=== PATIENT | male | born 1955 | race Caucasian/White ===

== ENCOUNTER 2016-10-15 17:56 | Emergency (ER) | payer MEDICARE, OTHER ==
[~2016-10-15] VITALS: Ht 190.5 cm; Wt 98.6 kg
[~2016-10-15 17:56] MED LIST: AMLO5TAB96 PO; CORE3.12 PO; FOLI1TAB PO; IBUP-232 PO; LORTA5 PO; PRAV10 PO; THIA100T PO
[2016-10-15 17:57] VITALS: BP 134/74; PULSE 84; RESP 15; TEMP 97.8; O2SAT 99
[2016-10-15] MEDS ORDERED: VANCOMYCIN INJ 1,000 MG in SODIUM CHLOR 0.9% 250 ML INJ 250 ML IV ONE (18:30)
--- NOTE | 2016-10-15 18:36 | PD ---
HPI Chief Complaint: Skin Problem Time Seen by Provider: 18:22 Travel History International Travel<30 days: No Contact w/Intl Traveler<30days: No Traveled to known affect area: No History of Present Illness HPI Patient is a 61-year-old male who presents to emergency room with complaints of worsening cellulitis. Patient reports that a few days ago, he injured his left lower extremity on a barstool, reports that he ended up developing a cellulitis and of redness to his left lower extremity. Patient reports that he follow-up with primary care doctor who started him on Bactrim 3 days ago. Patient reports that he is concerned as he has been compliant with his medications but noticed increased redness up his left leg. Patient reports no fevers or chills , reports that he did thinks that his antibiotics are not working at this time. Patient reports that his tetanus is up-to-date. PFSH Past Medical History Arthritis: Yes Asthma: No Blood Disorders: No Heart Rhythm Problems: No Cancer: No Cardiovascular Problems: Yes ([place] in 2012) High Cholesterol: No Chemotherapy: No Chest Pain: Yes Congestive Heart Failure: No Diabetes: No Diminished Hearing: No Deep Vein Thrombosis: Yes (LLE 2007) Endocrine: No Gastrointestinal Disorders: No (LT SIDE HERNIA) Glaucoma: No Genitourinary: No Headaches: Yes Hepatitis: No Hiatal Hernia: No Hypertension: Yes Immune Disorder: No Implanted Vascular Access Dvce: No Medical other: Yes (arthritis,back problems) Musculoskeletal: Yes Neurologic: Yes Psychiatric: No Reproductive: No Respiratory: No Myocardial Infarction: Yes Radiation Therapy: No Thyroid Disease: No PNEUMOCCOCAL Vaccine (Year): 2 Past Surgical History Abdominal Surgery: No AICD: No Arteriovenous Shunt: No Body Medical Devices: right knee Cardiac Surgery: No Ear Surgery: No Endocrine Surgery: No Eye Surgery: No Genitourinary Surgery: No Insulin Pump: No Joint Replacement: Yes (RIGHT KNEE REPLACEMENT in 2012) Neurologic Surgery: Yes (PARTIAL LAMINECTOMY LUMBAR BACK) Oral Surgery: No Pacemaker: No Thoracic Surgery: No Other Surgery: Yes (RT THUMB LIGAMENT REPAIR, RT BICEP TENDON REPAIR, HARRY CARPAL TUNNEL REPAIR) Social History Alcohol Use: Yes (1-2 times per week) Tobacco Use: No Substance Use: No Allergies-Medications (Allergen,Severity, Reaction): Coded Allergies: Lisinopril (Verified Allergy, Unknown, Wheezing, 02/21/16) *MDRO Multi-Drug Resistant Organism (Verified Adverse Reaction, Unknown, ) MRSA (back wound) - 09/20/10 MRSA PCR (nares) negative - 12/24/15 & 12/27/15. Cleared per Infection Control Reported Meds & Prescriptions Reported Meds & Active Scripts Active Reported Thiamine (Thiamine HCl) 50 Mg Cap 50 Mg PO DAILY Pravastatin 10 Mg Tab 10 Mg PO DAILY Coreg (Carvedilol) 12.5 Mg Tab 12.5 Mg PO DAILY Norvasc (Amlodipine Besylate) 10 Mg Tab 10 Mg PO DAILY Review of Systems General / Constitutional: No: Fever, Chills Eyes: No: Visual changes HENT: No: Headaches Cardiovascular: No: Chest Pain or Discomfort Respiratory: No: Shortness of Breath Gastrointestinal: No: Abdominal Pain Genitourinary: No: Dysuria Musculoskeletal: No: Pain Skin: Positive Other (cellulitis), No Rash Neurologic: No: Weakness Psychiatric: No: Depression Endocrine: No: Polydipsia Hematologic/Lymphatic: No: Easy Bruising Physical Exam Narrative GENERAL: No acute distress, nontoxic SKIN: Warm and dry. Patient with increased warmth from his left ankle below his left knee, patient with circumferential cellulitis HEAD: Atraumatic. Normocephalic. EYES: . No injection or drainage. ENT: No nasal bleeding or discharge. Mucous membranes pink and moist. NECK: Trachea midline. No JVD. CARDIOVASCULAR: Regular rate and rhythm. No murmur appreciated. RESPIRATORY: No accessory muscle use. Clear to auscultation. Breath sounds equal bilaterally. GASTROINTESTINAL: Abdomen soft, non-tender, nondistended. Hepatic and splenic margins not palpable. MUSCULOSKELETAL: No obvious deformities. No clubbing. No cyanosis. No edema. NEUROLOGICAL: Awake and alert. No obvious cranial nerve deficits. Motor grossly within normal limits. Normal speech. PSYCHIATRIC: Appropriate mood and affect; insight and judgment normal. Data Data Last Documented VS Vital Signs Date Time Temp Pulse Resp B/P Pulse Ox O2 Delivery O2 Flow Rate FiO2 10/15/16 18:19 75 18 10/15/16 17:57 97.8 134/74 99 Orders Complete Blood Count With Diff (10/15/16 18:27) Comprehensive Metabolic Panel (10/15/16 18:27) Blood Culture (10/15/16 18:27) Vancomycin Inj (Vancomycin Inj) (10/15/16 18:30) Labs Laboratory Tests Test 10/15/16 18:33 White Blood Count 6.5 TH/MM3 Red Blood Count 4.57 MIL/MM3 Hemoglobin 14.3 GM/DL Hematocrit 40.0 % Mean Corpuscular Volume 87.6 FL Mean Corpuscular Hemoglobin 31.3 PG Mean Corpuscular Hemoglobin 35.7 % Concent Red Cell Distribution Width 13.5 % Platelet Count 250 TH/MM3 Mean Platelet Volume 7.6 FL Neutrophils (%) (Auto) 62.1 % Lymphocytes (%) (Auto) 22.9 % Monocytes (%) (Auto) 10.0 % Eosinophils (%) (Auto) 3.9 % Basophils (%) (Auto) 1.1 % Neutrophils # (Auto) 4.0 TH/MM3 Lymphocytes # (Auto) 1.5 TH/MM3 Monocytes # (Auto) 0.6 TH/MM3 Eosinophils # (Auto) 0.3 TH/MM3 Basophils # (Auto) 0.1 TH/MM3 CBC Comment DIFF FINAL Differential Comment Sodium Level 141 MEQ/L Potassium Level 3.3 MEQ/L Chloride Level 101 MEQ/L Carbon Dioxide Level 28.2 MEQ/L Anion Gap 12 MEQ/L Blood Urea Nitrogen 13 MG/DL Creatinine 1.22 MG/DL Estimat Glomerular Filtration 60 ML/MIN Rate Random Glucose 86 MG/DL Calcium Level 9.2 MG/DL Total Bilirubin 0.4 MG/DL Aspartate Amino Transf 28 U/L (AST/SGOT) Alanine Aminotransferase 28 U/L (ALT/SGPT) Alkaline Phosphatase 100 U/L Total Protein 7.5 GM/DL Albumin 3.7 GM/DL [facility] Medical Decision Making Medical Screen Exam Complete: Yes Emergency Medical Condition: Yes Interpretation(s) Vital Signs Date Time Temp Pulse Resp B/P Pulse Ox O2 Delivery O2 Flow Rate FiO2 10/15/16 18:19 75 18 10/15/16 17:57 97.8 84 15 134/74 99 Differential Diagnosis Cellulitis Narrative Course 61-year-old male who presents to emergency room for reevaluation of the cellulitis to his left lower extremity. Patient was seen by his primary care doctor 3 days ago was started on Bactrim for cellulitis of his left lower extremity. Patient reports that he has been compliant with his medications but noticed increased erythema going up his leg. Patient here for further evaluation of symptoms. Lab work as well as blood cultures obtained. Patient's tetanus is up-to-date. Plan to give IV dose of Vanco CBC WBC 6.5 Hemoglobin 14.3 Hematocrit 40 Platelets 250 BMP Sodium 141 Chloride 101 BUN 13 Creatinine 1.22 Discussed with patient need to change antibiotics to clindamycin. Signs and symptoms of when to return to the emergency room was reviewed with patient in detail. We'll have patient stop taking the Bactrim. If patient develops any fevers or chills or progressing symptoms, patient was instructed to return directly to the emergency room for admission to the hospital. Patient will follow up with cultures from today. Patient happy with plan of care. Diagnosis Primary Impression: Cellulitis and abscess of leg Patient Instructions: General Instructions Additional Instructions: Return to the emergency room if symptoms worsen or progress Stop taking the Bactrim, start taking clindamycin 3 times a day Please take a probiotic with your antibiotics Please return to the emergency room if you develop any fevers or chills or red streaking up your leg Return to the emergency room in 48 hours if symptoms worsen or progress as you' ll need admission at that time. Please follow-up with all cultures from today Med/Other Pt SpecificInfo: Prescription(s) given Scripts Clindamycin 300 Mg Erd390 Mg PO TID 10 Days Ref 0 Prov:Estelle Harrington DO 10/15/16 Disposition: 01 DISCHARGE HOME Condition: Stable Estelle Harrington DO Oct 15, 2016 18:36
[2016-10-15 18:49] LABS: BASOPHIL # 0.1 TH/MM3 (0-0.2); BASOPHIL % 1.1 % (0.0-2.0); EOSINOPHIL # 0.3 TH/MM3 (0-0.4); EOSINOPHIL % 3.9 % (0.0-4.0); HEMO FLAGS DIFF FINAL; LYMPH % 22.9 % (9.0-44.0); LYMPHOCYTE # 1.5 TH/MM3 (1.0-4.8); MEAN CELL VOLUME 87.6 FL (80.0-100.0); MEAN CORPUSCULAR HEMOGLOBIN 31.3 PG (27.0-34.0); MEAN CORPUSCULAR HGB CONC 35.7 % (32.0-36.0); NEUT % 62.1 % (16.0-70.0); PLATELET COUNT 250 TH/MM3 (150-450); RED BLOOD COUNT 4.57 MIL/MM3 (4.50-5.90); RED CELL DISTRIBUTION WIDTH 13.5 % (11.6-17.2); WHITE BLOOD COUNT 6.5 TH/MM3 (4.0-11.0)
[2016-10-15] MEDS ORDERED: PRAV10TA PO (19:00)
[2016-10-15] MEDS ORDERED: THIA50CA PO (19:00)
[2016-10-15] MEDS ORDERED: CARV12.5 PO (19:00)
[2016-10-15] MEDS ORDERED: AMLO10 PO (19:00)
[2016-10-15 19:48] LABS: BLOOD UREA NITROGEN 13 MG/DL (7-18); GLOMERULAR FILTRATION RATE 60 ML/MIN (>89)
[2016-10-15 19:49] LABS: ALKALINE PHOSPHATASE 100 U/L (45-117); ALT (GPT) 28 U/L (12-78); ANION GAP 12 MEQ/L (5-15); AST (GOT) 28 U/L (15-37); BICARBONATE 28.2 MEQ/L (21.0-32.0); CHLORIDE 101 MEQ/L (98-107); POTASSIUM 3.3 MEQ/L (3.5-5.1); SODIUM (NA) 141 MEQ/L (136-145); TOTAL BILIRUBIN ADULT 0.4 MG/DL (0.2-1.0)
[2016-10-15] MEDS ORDERED: CLIN1CAP6 PO (20:07)
== END 2016-10-15 20:40 | disposition home or self-care (01) ==
LOC: NEPA 17:56
DX: L03.116 Cellulitis of left lower limb (principal); I25.2 Old myocardial infarction; Z86.718 Personal history of other venous thrombosis and embolism; I10 Essential (primary) hypertension
CPT/HCPCS: 80053; 85025; 87040; 96365; 99283; J3370; J7050

== ENCOUNTER 2016-12-15 20:40 | Emergency (ER) | payer OTHER ==
[~2016-12-15] VITALS: Ht 182.9 cm; Wt 88.0 kg
[~2016-12-15 20:40] MED LIST changes: +AMLO10 PO; -AMLO5TAB96 PO; +CARV12.5 PO; +CLIN1CAP6 PO; -CORE3.12 PO; -FOLI1TAB PO; -IBUP-232 PO; -LORTA5 PO; -PRAV10 PO; +PRAV10TA PO; -THIA100T PO; +THIA50CA PO
[2016-12-15 20:43] VITALS: BP 146/75; PULSE 87; RESP 15; TEMP 98.8; O2SAT 97
[2016-12-15 23:45] VITALS: BP 168/91; PULSE 70; RESP 16; O2SAT 97
[2016-12-15] MEDS ORDERED: PANT20TA2 PO (23:45)
[2016-12-16] MEDS ORDERED: SODIUM CHLOR 0.9% 1000 ML INJ 1,000 ML IV SCH (00:22)
[2016-12-16] MEDS ORDERED: PANTOPRAZOLE SODIUM 40 MG VIAL IVP ONE (00:30)
[2016-12-16] MEDS ORDERED: SODIUM CHLORIDE 0.9% FLUSH 10 ML FLUSH IV FLUSH PRN (00:30)
[2016-12-16 00:42] LABS: AUTOMATED NEUTROPHIL # 4.5 TH/MM3 (1.8-7.7); BASOPHIL % 0.5 % (0.0-2.0); EOSINOPHIL # 0.2 TH/MM3 (0-0.4); EOSINOPHIL % 3.5 % (0.0-4.0); HEMATOCRIT 40.7 % (39.0-51.0); HEMO FLAGS DIFF FINAL; LYMPH % 23.9 % (9.0-44.0); LYMPHOCYTE # 1.7 TH/MM3 (1.0-4.8); MEAN CELL VOLUME 88.3 FL (80.0-100.0); MEAN CORPUSCULAR HEMOGLOBIN 31.5 PG (27.0-34.0); MEAN CORPUSCULAR HGB CONC 35.7 % (32.0-36.0); MONO % 8.4 % (0.0-8.0); NEUT % 63.7 % (16.0-70.0); PLATELET COUNT 163 TH/MM3 (150-450); RED BLOOD COUNT 4.61 MIL/MM3 (4.50-5.90); RED CELL DISTRIBUTION WIDTH 14.3 % (11.6-17.2); WHITE BLOOD COUNT 7.1 TH/MM3 (4.0-11.0)
--- NOTE | 2016-12-16 00:54 | PD ---
HPI Chief Complaint: GI Complaint Time Seen by Provider: 00:22 Travel History International Travel<30 days: No Contact w/Intl Traveler<30days: No Traveled to known affect area: No History of Present Illness HPI 61-year-old male arrives complaining of black stool 2 over the past 2 days. He had a colonoscopy 4 days ago. Duodenal ulcer was found as well as gastritis and multiple gastroesophageal biopsies were taken. Colon polyp biopsies were also obtained. 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 He is advised to come to the ER. He also reports a mobile mass in the chest wall which has been present for about a year. It causes him pain. He has been seen in the past for. PFSH Past Medical History Arthritis: Yes Asthma: No Blood Disorders: No Heart Rhythm Problems: No Cancer: No Cardiovascular Problems: Yes ([place] in 2012) High Cholesterol: No Chemotherapy: No Chest Pain: Yes Congestive Heart Failure: No Diabetes: No Diminished Hearing: No Deep Vein Thrombosis: Yes (LLE 2007) Endocrine: No Glaucoma: No Genitourinary: No Headaches: Yes Hepatitis: No Hiatal Hernia: No Hypertension: Yes Immune Disorder: No Implanted Vascular Access Dvce: No Medical other: Yes (arthritis,back problems) Musculoskeletal: Yes Neurologic: Yes Psychiatric: No Reproductive: No Respiratory: No Immunizations Current: Yes Myocardial Infarction: Yes Radiation Therapy: No Thyroid Disease: No Tetanus Vaccination: < 5 Years Influenza Vaccination: No PNEUMOCCOCAL Vaccine (Year): 2 Past Surgical History Abdominal Surgery: No AICD: No Arteriovenous Shunt: No Body Medical Devices: right knee Cardiac Surgery: No Ear Surgery: No Endocrine Surgery: No Eye Surgery: No Genitourinary Surgery: No Insulin Pump: No Joint Replacement: Yes (RIGHT KNEE REPLACEMENT in 2012) Neurologic Surgery: Yes (PARTIAL LAMINECTOMY LUMBAR BACK) Oral Surgery: No Pacemaker: No Thoracic Surgery: No Other Surgery: Yes (RT THUMB LIGAMENT REPAIR, RT BICEP TENDON REPAIR, HARRY CARPAL TUNNEL REPAIR) Social History Alcohol Use: Yes (1-2 times per week) Tobacco Use: No Substance Use: No Allergies-Medications (Allergen,Severity, Reaction): Coded Allergies: Lisinopril (Verified Allergy, Unknown, Wheezing, 12/15/16) *MDRO Multi-Drug Resistant Organism (Verified Adverse Reaction, Unknown, ) MRSA (back wound) - 09/20/10 MRSA PCR (nares) negative - 12/24/15 & 12/27/15. Cleared per Infection Control Reported Meds & Prescriptions Reported Meds & Active Scripts Active Reported Pantoprazole (Pantoprazole Sodium) 20 Mg Tab Unknown Dose PO DAILY Thiamine (Thiamine HCl) 50 Mg Cap 50 Mg PO DAILY Pravastatin 10 Mg Tab 10 Mg PO DAILY Coreg (Carvedilol) 12.5 Mg Tab 12.5 Mg PO DAILY Norvasc (Amlodipine Besylate) 10 Mg Tab 10 Mg PO DAILY Review of Systems Except as stated in HPI: all other systems reviewed are Neg Physical Exam Narrative . GENERAL: 61-year-old male well-nourished well-developed no acute distress RECTAL: No hemorrhoids. Black stool. Guaiac positive. SKIN: Focused skin assessment warm/dry. HEAD: Atraumatic. Normocephalic. EYES: Pupils equal and round. No scleral icterus. No injection or drainage. ENT: No nasal bleeding or discharge. Mucous membranes pink and moist. NECK: Trachea midline. No JVD. CARDIOVASCULAR: Regular rate and rhythm. No murmur appreciated. Chest wall I cannot feel mass the patient describes. Overlying skin appears normal RESPIRATORY: No accessory muscle use. Clear to auscultation. Breath sounds equal bilaterally. GASTROINTESTINAL: Abdomen soft, non-tender, nondistended. Hepatic and splenic margins not palpable. MUSCULOSKELETAL: No obvious deformities. No clubbing. No cyanosis. No edema. NEUROLOGICAL: Awake and alert. No obvious cranial nerve deficits. Motor grossly within normal limits. Normal speech. PSYCHIATRIC: Appropriate mood and affect; insight and judgment normal. Data Data Last Documented VS Vital Signs Date Time Temp Pulse Resp B/P Pulse Ox O2 Delivery O2 Flow Rate FiO2 12/16/16 00:57 68 16 128/81 98 Room Air 12/15/16 20:43 98.8 Vital signs reviewed Orders Complete Blood Count With Diff (12/16/16 00:22) Comprehensive Metabolic Panel (12/16/16 00:22) Lactic Acid (12/16/16 00:22) Iv Access Insert/Monitor (12/16/16 00:22) Ecg Monitoring (12/16/16 00:22) Oximetry (12/16/16 00:22) Pantoprazole Inj (Protonix Inj) (12/16/16 00:30) Sodium Chlor 0.9% 1000 Ml Inj (Ns 1000 M (12/16/16 00:22) Sodium Chloride 0.9% Flush (Ns Flush) (12/16/16 00:30) Potassium Chloride (Kcl) (12/16/16 01:30) Labs Laboratory Tests Test 12/16/16 00:30 White Blood Count 7.1 TH/MM3 Red Blood Count 4.61 MIL/MM3 Hemoglobin 14.5 GM/DL Hematocrit 40.7 % Mean Corpuscular Volume 88.3 FL Mean Corpuscular Hemoglobin 31.5 PG Mean Corpuscular Hemoglobin 35.7 % Concent Red Cell Distribution Width 14.3 % Platelet Count 163 TH/MM3 Mean Platelet Volume 8.1 FL Neutrophils (%) (Auto) 63.7 % Lymphocytes (%) (Auto) 23.9 % Monocytes (%) (Auto) 8.4 % Eosinophils (%) (Auto) 3.5 % Basophils (%) (Auto) 0.5 % Neutrophils # (Auto) 4.5 TH/MM3 Lymphocytes # (Auto) 1.7 TH/MM3 Monocytes # (Auto) 0.6 TH/MM3 Eosinophils # (Auto) 0.2 TH/MM3 Basophils # (Auto) 0.0 TH/MM3 CBC Comment DIFF FINAL Differential Comment Sodium Level 142 MEQ/L Potassium Level 2.7 MEQ/L Chloride Level 103 MEQ/L Carbon Dioxide Level 31.1 MEQ/L Anion Gap 8 MEQ/L Blood Urea Nitrogen 14 MG/DL Creatinine 1.05 MG/DL Estimat Glomerular Filtration 72 ML/MIN Rate Random Glucose 87 MG/DL Lactic Acid Level 0.9 mmol/L Calcium Level 8.9 MG/DL Total Bilirubin 0.8 MG/DL Aspartate Amino Transf 35 U/L (AST/SGOT) Alanine Aminotransferase 34 U/L (ALT/SGPT) Alkaline Phosphatase 93 U/L Total Protein 7.5 GM/DL Albumin 4.2 GM/DL [facility] Medical Decision Making Medical Screen Exam Complete: Yes Emergency Medical Condition: Yes Medical Record Reviewed: Yes Differential Diagnosis Anemia, upper GI bleed, lower GI bleed Narrative Course CBC & BMP Diagram 12/16/16 00:30 Lactic acid 0.9 and LFTs are normal The patient has been comfortable throughout his ER stay. K is quite low however 60meq given here and we'll provide a script for the next few days. He has normal vital signs and I do not believe admission would be of much benefit for him. He has good outside follow-up and appears comfortable with the plan that includes follow-up on Sunday and discharge him. Diagnosis Primary Impression: Black tarry stools Additional Impressions: Chest wall pain Hypokalemia Referrals: [facility] 2 days Primary Care Physician 2 days Additional Instructions: You have a choice when it comes to health care, and we are glad that you chose [facility]. Hopefully, we have met your expectations on today's visit. You are welcome to return to [facility] at any time, as we are committed to meeting the health care needs of our community. Med/Other Pt SpecificInfo: Prescription(s) given Scripts Potassium Chloride ER 10 Meq Tab10 Meq PO BID 4 Days Ref 0 Prov:Carlos Mcnulty MD 12/16/16 Disposition: 01 DISCHARGE HOME Condition: Stable Carlos Mcnulty MD Dec 16, 2016 00:54
[2016-12-16 00:57] VITALS: BP 128/81; PULSE 68; RESP 16; O2SAT 98
[2016-12-16 01:15] LABS: ALKALINE PHOSPHATASE 93 U/L (45-117); ALT (GPT) 34 U/L (12-78); ANION GAP 8 MEQ/L (5-15); AST (GOT) 35 U/L (15-37); BICARBONATE 31.1 MEQ/L (21.0-32.0); BLOOD UREA NITROGEN 14 MG/DL (7-18); CHLORIDE 103 MEQ/L (98-107); GLOMERULAR FILTRATION RATE 72 ML/MIN (>89); SODIUM (NA) 142 MEQ/L (136-145); TOTAL BILIRUBIN ADULT 0.8 MG/DL (0.2-1.0)
[2016-12-16 01:18] LABS: POTASSIUM 2.7 MEQ/L (3.5-5.1)
[2016-12-16] MEDS ORDERED: POTA10TA2 PO (01:29)
[2016-12-16] MEDS ORDERED: POTASSIUM CHLORIDE 20 MEQ CONTROLLED RELEASE TAB PO ONE (01:30)
== END 2016-12-16 01:52 | disposition home or self-care (01) ==
LOC: NEPE 20:40
DX: R19.5 Other fecal abnormalities (principal); R07.89 Other chest pain; E87.6 Hypokalemia; I25.2 Old myocardial infarction; Z86.718 Personal history of other venous thrombosis and embolism; I10 Essential (primary) hypertension
CPT/HCPCS: 80053; 83605; 85025; 96361; 96374; 99284; C9113; J7030

== ENCOUNTER 2017-11-16 13:59 | Emergency (ER) | payer OTHER ==
[~2017-11-16] VITALS: Ht 190.5 cm; Wt 102.0 kg
[~2017-11-16 13:59] MED LIST changes: -CLIN1CAP6 PO; +PANT20TA2 PO; +POTA10TA2 PO
[2017-11-16 14:32] VITALS: BP 138/90; PULSE 70; RESP 16; TEMP 98.2; O2SAT 96
--- NOTE | 2017-11-16 15:23 | RADRPT ---
EXAM DATE/TIME: 11/16/2017 14:52 [facility] COMPARISON: No previous studies available for comparison. INDICATIONS : Left knee pain after fall. Patient states the pain is now radiating up his left thigh. MEDICAL HISTORY : H/O blood clots left leg. SURGICAL HISTORY : Right knee replacement approx 4 years ago. ENCOUNTER: Initial ACUITY: 1 week PAIN SCORE: 10/10 LOCATION: Left Knee/femur. FINDINGS: Two view examination of the left knee demonstrates a mild degenerative changes and small joint effusi on. Soft tissue swelling anteriorly. Chondrocalcinosis. Bony mineralization is normal. The suprapat ellar soft tissues have a normal configuration. CONCLUSION: 1. Mild osteoarthritis and small joint effusion. 2. No fracture 3. Chondrocalcinosis. Ramírez Clinton MD on November 16, 2017 at 15:20 Board Certified Radiologist. This report was verified electronically.
--- NOTE | 2017-11-16 19:27 | PD ---
HPI Chief Complaint: Injury Time Seen by Provider: 19:24 Travel History International Travel<30 days: No Contact w/Intl Traveler<30days: No Traveled to known affect area: No History of Present Illness HPI FELT A POPPING SOUND TO LEFT KNEE, now pain 5/10, worse with weight bearing. denies any assoc factors such as fever/rash to leg/neck pain/donis/cp/abdpain/back pain/ n/v/d/swelling to leg... ALL:LISINOPRIL PMHX: GA, HTN, DVT, RT KNEE REPLACEMENT, PFSH Past Medical History Arthritis: Yes Asthma: No Blood Disorders: No Heart Rhythm Problems: No Cancer: No Cardiovascular Problems: Yes High Cholesterol: No Chemotherapy: No Chest Pain: Yes Congestive Heart Failure: No Diabetes: No Diminished Hearing: No Deep Vein Thrombosis: Yes (LLE 2007) Endocrine: No Glaucoma: No Genitourinary: No Headaches: Yes Hepatitis: No Hiatal Hernia: No Hypertension: Yes Immune Disorder: No Implanted Vascular Access Dvce: No Musculoskeletal: Yes Neurologic: Yes Psychiatric: No Reproductive: No Respiratory: No Immunizations Current: Yes Myocardial Infarction: Yes Radiation Therapy: No Thyroid Disease: No PNEUMOCCOCAL Vaccine (Year): 2 Past Surgical History Abdominal Surgery: No AICD: No Arteriovenous Shunt: No Body Medical Devices: right knee Cardiac Surgery: No Ear Surgery: No Endocrine Surgery: No Eye Surgery: No Genitourinary Surgery: No Insulin Pump: No Joint Replacement: Yes (RIGHT KNEE REPLACEMENT in 2012) Neurologic Surgery: Yes (PARTIAL LAMINECTOMY LUMBAR BACK) Oral Surgery: No Pacemaker: No Thoracic Surgery: No Other Surgery: Yes (RT THUMB LIGAMENT REPAIR, RT BICEP TENDON REPAIR, HARRY CARPAL TUNNEL REPAIR) Social History Alcohol Use: Yes (1-2 times per week) Tobacco Use: No Substance Use: No Allergies-Medications (Allergen,Severity, Reaction): Coded Allergies: lisinopril (Unverified Allergy, Unknown, Wheezing, 11/16/17) *MDRO Multi-Drug Resistant Organism (Verified Adverse Reaction, Unknown, ) MRSA (back wound) - 09/20/10 MRSA PCR (nares) negative - 12/24/15 & 12/27/15. Cleared per Infection Control Reported Meds & Prescriptions Reported Meds & Active Scripts Active Ultram (Tramadol HCl) 50 Mg Tab 50 Mg PO Q8H PRN Potassium Chloride ER (Potassium Chloride) 10 Meq Tab 10 Meq PO BID 4 Days Reported Aspirin Low Dose (Aspirin) 81 Mg Chew 81 Mg CHEW DAILY Pantoprazole (Pantoprazole Sodium) 20 Mg Tab 20 PO DAILY Pravastatin 10 Mg Tab 10 Mg PO DAILY Coreg (Carvedilol) 12.5 Mg Tab 12.5 Mg PO DAILY Norvasc (Amlodipine Besylate) 10 Mg Tab 10 Mg PO DAILY Review of Systems General / Constitutional: No: Fever Eyes: No: Visual changes HENT: No: Headaches Cardiovascular: No: Chest Pain or Discomfort Respiratory: No: Shortness of Breath Gastrointestinal: No: Abdominal Pain Genitourinary: No: Dysuria Musculoskeletal: Positive: Pain (knee pain) Skin: No Rash Neurologic: No: Weakness Psychiatric: No: Depression Endocrine: No: Polydipsia Hematologic/Lymphatic: No: Easy Bruising Physical Exam Narrative GENERAL: SKIN: Warm and dry. HEAD: Atraumatic. Normocephalic. EYES: Pupils equal and round. No scleral icterus. No injection or drainage. ENT: No nasal bleeding or discharge. Mucous membranes pink and moist. NECK: Trachea midline. No JVD. CARDIOVASCULAR: Regular rate and rhythm. RESPIRATORY: No accessory muscle use. Clear to auscultation. Breath sounds equal bilaterally. GASTROINTESTINAL: Abdomen soft, non-tender, nondistended. MUSCULOSKELETAL: Extremities without clubbing, cyanosis, or edema. No obvious deformities. no crepitus. negative anterior/posterior drawer sign, neg ttp over lcl or mcl. NEUROLOGICAL: Awake and alert. No obvious cranial nerve deficits. Motor grossly within normal limits. Five out of 5 muscle strength in the arms and legs. Normal speech. PSYCHIATRIC: Appropriate mood and affect; insight and judgment normal. Data Data Last Documented VS Orders Orders Knee, Ltd (1 Or 2vws) (11/16/17 ) Us Leg Venous Doppler (11/16/17 19:31) Ed Discharge Order (11/16/17 21:31) [facility] Medical Decision Making Medical Screen Exam Complete: Yes Emergency Medical Condition: Yes Medical Record Reviewed: Yes Differential Diagnosis osteoarthritis v fx v dislocation v dvt Narrative Course ultrasound neg for dvt xray of knee read by radiologist as OA, small joint effusion and chondrocalcinosis findings d/w patient and Diagnosis Primary Impression: knee pain Patient Instructions: General Instructions, Knee Pain (GEN) Scripts Tramadol (Ultram) 50 Mg Tab 50 MG PO Q8H Y for PAIN, #15 TAB 0 Refills Prov: Ajit Villanueva MD 11/16/17 Disposition: 01 DISCHARGE HOME Condition: Stable Ajit Villanueva MD Nov 16, 2017 19:27
[2017-11-16] MEDS ORDERED: ASPI81CH6 CHEW (19:30)
--- NOTE | 2017-11-16 20:33 | RADRPT ---
EXAM DATE/TIME: 11/16/2017 19:39 [facility] COMPARISON: No previous studies available for comparison. INDICATIONS : Left leg pain. MEDICAL HISTORY : Myocardial infarction. Hypertension. Left side hernia. Arthritis. MRSA. Chest pain. SURGICAL HISTORY : Total knee replacement, right. Carpal tunnel syndrome. Partial laminectomy. Right thumb ligament re apir. Right bicep tendon repair. ENCOUNTER: Initial ACUITY: 1 day PAIN SCORE: 2/10 LOCATION: Left leg. TECHNIQUE: Venous ultrasound of the leg was performed from the inguinal ligament to the proximal calf. Real-valentin e, color Doppler and spectral tracing, compression and augmentation techniques were used. FINDINGS: There is normal compressibility of the deep venous system from the inguinal region to the proximal ca lf. No echogenic clot is seen in the lumen of the common femoral, femoral, popliteal, and posterior tibial veins. There is a normal response of the venous system to proximal and distal augmentation an d respiration. CONCLUSION: Normal examination. Rian Wellington MD on November 16, 2017 at 20:31 Board Certified Radiologist. This report was verified electronically.
[2017-11-16] MEDS ORDERED: TRAM50 PO (21:30)
== END 2017-11-16 22:04 | disposition home or self-care (01) ==
LOC: NEPD 13:59
DX: M25.562 Pain in left knee (principal); M79.605 Pain in left leg; I10 Essential (primary) hypertension; I25.2 Old myocardial infarction; M19.90 Unspecified osteoarthritis, unspecified site; Z86.718 Personal history of other venous thrombosis and embolism; Z96.651 Presence of right artificial knee joint
CPT/HCPCS: 73560; 93971; 99283